=== PATIENT | male | born 1960 ===

== ENCOUNTER 2021-06-04 18:00 | Inpatient (IN) ==
[2021-06-04] MEDS ORDERED: Dexamethasone IV 4 MG/ML 5 ML VIAL (20 MG) IVPB ONE (18:09)
[2021-06-04 18:42] LABS: Hematocrit 42 % (42-52); Hemoglobin 13.2 g/dL (14.0-18.0); Mean Corpuscular HGB Conc 31 g/dL (31-36); Mean Corpuscular Hemoglobin 25 pg (27-31); Mean Corpuscular Volume 81 fL (80-94); Red Blood Count 5.22 10^6 /uL (4.18-5.48); Red Cell Distribution Width 20 % (10-15); White Blood Count 9.3 10^3/uL (3.5-10.8)
[2021-06-04 18:43] LABS: ABS Basophils 0.1 10^3/ul (0-0.2); ABS Lymphocytes 1.1 10^3/ul (1.0-4.8); ABS Monocytes 0.9 10^3/ul (0-0.8); ABS Neutrophils 7.2 10^3/ul (1.5-7.7); Eosinophil % 0.3 %; Lymphocyte % 12.3 %; Nucleated Red Blood Cells % 0.2
[2021-06-04 19:01] LABS: High Sens Troponin Baseline 23 pg/mL (<20)
[2021-06-04 19:14] LABS: ALT 39 U/L (7-52); Albumin 3.9 g/dL (3.2-5.2); Albumin/Globulin Ratio 0.9 (1-3); Alkaline Phosphatase 100 U/L (35-149); Anion Gap 19 mmol/L (2-11); Blood Urea Nitrogen 28 mg/dL (6-24); C Reactive Protein 105.94 mg/L (<8.01); Calcium 8.9 mg/dL (8.6-10.3); Chloride 98 mmol/L (101-111); Globulin 4.4 g/dL (2-4); Glucose 480 mg/dL (70-100); Sodium 131 mmol/L (135-145); Total Protein 8.3 g/dL (6.4-8.9); eGFR CKD-EPI 67.7 (>60)
[2021-06-04 19:16] LABS: PCO2 Arterial 25 mmHg (35-45); PO2 Arterial 80 mmHg (80-100)
[2021-06-04 19:16] LABS: CO2 Carbon Dioxide 14 mmol/L (22-32)
[2021-06-04] MEDS ORDERED: INSULIN GLARGINE (NF) 300 UNIT/ML INJ SUBCUT ONE (20:08)
[2021-06-04] MEDS ORDERED: Lactated Ringers 1000 ml BAG 1,000 ML IV ONE ×2 (20:10→23:39)
[2021-06-04 20:23] LABS: High Sensitivity Troponin 1 Hr 40 pg/mL (<20)
[2021-06-04 20:29] LABS: Mean Platelet Volume 9.1 fL (7.4-10.4); Platelet Count 200 10^3/uL (150-450)
[2021-06-04] MEDS ORDERED: Albuterol/Ipratropium NEB.SOL (2.5/0.5 MG) 3 ML NEB.SOLN INH ONE (20:34)
[2021-06-04] MEDS ORDERED: Iodixanol (CONTRAST) 320 MG/ML 100 ML SDV IV ONE (20:40)
[2021-06-04] MEDS ORDERED: Insulin GLARGINE 100 un/ml 10 ml VIAL SUBCUT ONE (21:15)
[2021-06-04] MEDS ORDERED: Thiamine 100 MG/ML 2 ml VIAL (200 mg) IM ONE (23:43)
[2021-06-04] MEDS ORDERED: LORazepam 2 mg VIAL 1 ml IV PUSH SCH (23:45)
[2021-06-05 00:14] LABS: Urine Appearance Clear; Urine Bilirubin Negative (Negative); Urine Blood 2+ (Negative); Urine Color Yellow; Urine Glucose 3+(>=500 mg/dL) (Negative); Urine Ketones 1+ (Negative); Urine Nitrite Negative (Negative); Urine Protein 2+(100 mg/dL) (Negative); Urine Specific Gravity 1.053 (1.002-1.030); Urine Urobilinogen Negative (Negative)
[2021-06-05 00:15] LABS: Urine Bacteria Absent (Absent); Urine Red Blood Cell Trace(0-2/hpf) (Absent); Urine White Blood Cell Absent (Absent)
[2021-06-05 00:23] LABS: Magnesium 1.8 mg/dL (1.9-2.7); eGFR CKD-EPI 87.2 (>60)
[2021-06-05] MEDS ORDERED: Magnesium Sulfate 2 gm BAG 2 GM/50 ML BAG IVPB ONE (00:50)
[2021-06-05 03:03] LABS: Glucose Confirmatory 417 mg/dL (70-100)
[2021-06-05 05:53] LABS: Calcium 8.7 mg/dL (8.6-10.3); Magnesium 2.2 mg/dL (1.9-2.7); Potassium 4.1 mmol/L (3.5-5.0); eGFR CKD-EPI 97.2 (>60)
[2021-06-05] MEDS ORDERED: Insulin GLARGINE 100 un/ml 10 ml VIAL SUBCUT SCH (09:00)
[2021-06-05] MEDS: Multivitamins/Minerals TAB PO SCH (09:34)
[2021-06-05] MEDS ORDERED: Insulin GLARGINE 100 un/ml 10 ml VIAL SUBCUT ONE (10:34)
[2021-06-05 13:33] LABS: Blood Urea Nitrogen 34 mg/dL (6-24); CO2 Carbon Dioxide 22 mmol/L (22-32); Calcium 8.7 mg/dL (8.6-10.3); Chloride 106 mmol/L (101-111); Glucose 369 mg/dL (70-100); Sodium 140 mmol/L (135-145); eGFR CKD-EPI 99.7 (>60)
[2021-06-05 14:15] LABS: Anion Gap 12 mmol/L (2-11)
[2021-06-05] MEDS ORDERED: Lorazepam PYXIS KEY PRN (20:17)
[2021-06-05] MEDS ORDERED: LORazepam 2 mg VIAL 1 ml IV PUSH PRN (20:17)
[2021-06-06 05:57] LABS: Hematocrit 37 % (42-52); Hemoglobin 11.4 g/dL (14.0-18.0); Mean Corpuscular HGB Conc 31 g/dL (31-36); Mean Corpuscular Hemoglobin 25 pg (27-31); Mean Corpuscular Volume 81 fL (80-94); Mean Platelet Volume 8.5 fL (7.4-10.4); Platelet Count 109 10^3/uL (150-450); Red Blood Count 4.57 10^6 /uL (4.18-5.48); Red Cell Distribution Width 20 % (10-15); White Blood Count 7.7 10^3/uL (3.5-10.8)
[2021-06-06 06:46] LABS: Calcium 6.9 mg/dL (8.6-10.3); Magnesium 1.7 mg/dL (1.9-2.7); Potassium 3.4 mmol/L (3.5-5.0); eGFR CKD-EPI 112.1 (>60)
[2021-06-06] MEDS ORDERED: Furosemide 40 mg/4 ml IV VIAL IV ONE (08:41)
[2021-06-06] MEDS ORDERED: Magnesium Sulfate IV 3 GM in NS 0.9% 100 ml BAG 100 ML IVPB ONE (08:41)
[2021-06-06] MEDS ORDERED: KCL 20 MEQ/100 ML IVPREMIX 20 MEQ/100 ML BAG IV ONE (08:41)
[2021-06-06] MEDS ORDERED: Magnesium Sulfate 2 GM IV (Premix) IVPB ONE (09:00)
[2021-06-06] MEDS: Insulin GLARGINE 100 un/ml 10 ml VIAL SUBCUT SCH (09:30)
[2021-06-06] MEDS: Acetylcysteine 600mgCAP(RENAL) PO SCH ×2 (09:38→21:43)
[2021-06-06] MEDS: Multivitamins/Minerals TAB PO SCH (09:39)
[2021-06-06] MEDS ORDERED: Magnesium Sulfate 1 GM IV 1 GM/100 ML BAG IV ONE (10:00)
[2021-06-06] MEDS ORDERED: Senna TAB 8.6 mg TAB PO PRN (10:32)
[2021-06-06] MEDS ORDERED: Senna TAB 8.6 mg TAB PO ONE (10:34)
[2021-06-06] MEDS: CMC: Selenium 200 mcg TAB (NF) PO SCH (11:11)
[2021-06-06 14:45] LABS: Hematocrit 37 % (42-52); Hemoglobin 11.6 g/dL (14.0-18.0)
[2021-06-06] MEDS: Magnesium Hydroxide LIQ 30 ML UDC PO SCH ×2 (21:42→21:43)
[2021-06-07 07:02] LABS: Calcium 8.4 mg/dL (8.6-10.3); Magnesium 2.1 mg/dL (1.9-2.7); Potassium 4.2 mmol/L (3.5-5.0); eGFR CKD-EPI 102.9 (>60)
[2021-06-07 08:28] LABS: ABS Lymphocytes 0.7 10^3/ul (1.0-4.8); ABS Monocytes 0.4 10^3/ul (0-0.8); Eosinophil % 0.1 %; Hematocrit 37 % (42-52); Hemoglobin 11.7 g/dL (14.0-18.0); Lymphocyte % 10.7 %; Mean Corpuscular HGB Conc 32 g/dL (31-36); Mean Corpuscular Hemoglobin 25 pg (27-31); Mean Corpuscular Volume 79 fL (80-94); Mean Platelet Volume 8.6 fL (7.4-10.4); Nucleated Red Blood Cells % 0.1; Platelet Count 91 10^3/uL (150-450); RBC Morphology Normal (Normal); Red Blood Count 4.63 10^6 /uL (4.18-5.48); Red Cell Distribution Width 19 % (10-15); White Blood Count 6.1 10^3/uL (3.5-10.8)
[2021-06-07] MEDS: Insulin GLARGINE 100 un/ml 10 ml VIAL SUBCUT SCH (08:40)
[2021-06-07] MEDS: Acetylcysteine 600mgCAP(RENAL) PO SCH ×2 (08:40→20:08)
[2021-06-07] MEDS: CMC: Selenium 200 mcg TAB (NF) PO SCH (08:41)
[2021-06-07] MEDS: Multivitamins/Minerals TAB PO SCH (08:41)
[2021-06-07] MEDS: Magnesium Hydroxide LIQ 30 ML UDC PO SCH ×2 (08:41→20:59)
[2021-06-07 20:54] LABS: Hematocrit 38 % (42-52); Hemoglobin 12.1 g/dL (14.0-18.0)
[2021-06-08 05:49] LABS: ABS Basophils 0.1 10^3/ul (0-0.2); ABS Lymphocytes 0.9 10^3/ul (1.0-4.8); ABS Monocytes 0.4 10^3/ul (0-0.8); ABS Neutrophils 4.9 10^3/ul (1.5-7.7); Eosinophil % 0.7 %; Hematocrit 36 % (42-52); Hemoglobin 11.5 g/dL (14.0-18.0); Lymphocyte % 13.7 %; Mean Corpuscular HGB Conc 32 g/dL (31-36); Mean Corpuscular Hemoglobin 25 pg (27-31); Mean Corpuscular Volume 79 fL (80-94); Mean Platelet Volume 8.7 fL (7.4-10.4); Nucleated Red Blood Cells % 0.1; Platelet Count 84 10^3/uL (150-450); Red Blood Count 4.58 10^6 /uL (4.18-5.48); Red Cell Distribution Width 19 % (10-15); White Blood Count 6.3 10^3/uL (3.5-10.8)
[2021-06-08 06:50] LABS: Calcium 8.3 mg/dL (8.6-10.3); Magnesium 1.9 mg/dL (1.9-2.7); Potassium 3.7 mmol/L (3.5-5.0); eGFR CKD-EPI 103.3 (>60)
[2021-06-08 06:57] LABS: Anisocytosis 1+
[2021-06-08] MEDS: Multivitamins/Minerals TAB PO SCH (10:02)
[2021-06-08] MEDS: CMC: Selenium 200 mcg TAB (NF) PO SCH (10:02)
[2021-06-08] MEDS: Acetylcysteine 600mgCAP(RENAL) PO SCH ×2 (10:09→20:52)
[2021-06-08] MEDS: Magnesium Hydroxide LIQ 30 ML UDC PO SCH ×2 (10:10→20:26)
[2021-06-08] MEDS: Insulin GLARGINE 100 un/ml 10 ml VIAL SUBCUT SCH (10:10)
[2021-06-08] MEDS: Nystatin TOP POWDER 15 GM BTL TOPICAL SCH (20:51)
[2021-06-09 05:54] LABS: Hematocrit 38 % (42-52); Mean Corpuscular HGB Conc 32 g/dL (31-36); Mean Corpuscular Hemoglobin 25 pg (27-31); Mean Corpuscular Volume 79 fL (80-94); Mean Platelet Volume 8.9 fL (7.4-10.4); Platelet Count 83 10^3/uL (150-450); Red Blood Count 4.76 10^6 /uL (4.18-5.48); Red Cell Distribution Width 19 % (10-15); White Blood Count 6.1 10^3/uL (3.5-10.8)
[2021-06-09 06:13] LABS: Calcium 8.2 mg/dL (8.6-10.3); Magnesium 1.8 mg/dL (1.9-2.7); Potassium 4.1 mmol/L (3.5-5.0); eGFR CKD-EPI 102.4 (>60)
[2021-06-09 06:48] LABS: Anisocytosis 2+; Microcytosis 1+
[2021-06-09 06:49] LABS: ABS Basophils 0.1 10^3/ul (0-0.2); ABS Eosinophils 0.1 10^3/ul (0-0.6); ABS Lymphocytes 0.9 10^3/ul (1.0-4.8); ABS Monocytes 0.3 10^3/ul (0-0.8); ABS Neutrophils 4.7 10^3/ul (1.5-7.7); Eosinophil % 1.2 %; Lymphocyte % 15.4 %; Nucleated Red Blood Cells % 0.2
[2021-06-09] MEDS ORDERED: Magnesium Hydroxide LIQ 30 ML UDC PO PRN (07:53)
[2021-06-09] MEDS: Insulin GLARGINE 100 un/ml 10 ml VIAL SUBCUT SCH (08:04)
[2021-06-09] MEDS: CMC: Selenium 200 mcg TAB (NF) PO SCH (08:05)
[2021-06-09] MEDS: Multivitamins/Minerals TAB PO SCH (08:05)
[2021-06-09] MEDS: Nystatin TOP POWDER 15 GM BTL TOPICAL SCH ×2 (08:06→21:07)
[2021-06-09] MEDS: Acetylcysteine 600mgCAP(RENAL) PO SCH ×2 (08:06→21:03)
[2021-06-09] MEDS ORDERED: Magnesium Sulfate 2 gm BAG 2 GM/50 ML BAG IVPB ONE (13:21)
[2021-06-09] MEDS: Albuterol HFA INHALER 8 gm MDI INH PRN (23:50)
[2021-06-10] MEDS: Albuterol HFA INHALER 8 gm MDI INH PRN (04:51)
[2021-06-10 06:14] LABS: ABS Eosinophils 0.1 10^3/ul (0-0.6); ABS Lymphocytes 0.8 10^3/ul (1.0-4.8); ABS Monocytes 0.3 10^3/ul (0-0.8); ABS Neutrophils 4.9 10^3/ul (1.5-7.7); Eosinophil % 1.6 %; Hematocrit 38 % (42-52); Hemoglobin 12.1 g/dL (14.0-18.0); Lymphocyte % 13.3 %; Mean Corpuscular HGB Conc 32 g/dL (31-36); Mean Corpuscular Hemoglobin 25 pg (27-31); Mean Corpuscular Volume 79 fL (80-94); Mean Platelet Volume 9.1 fL (7.4-10.4); Nucleated Red Blood Cells % 0.1; Platelet Count 78 10^3/uL (150-450); Red Blood Count 4.76 10^6 /uL (4.18-5.48); Red Cell Distribution Width 18 % (10-15); White Blood Count 6.2 10^3/uL (3.5-10.8)
[2021-06-10 06:53] LABS: Potassium 3.6 mmol/L (3.5-5.0); eGFR CKD-EPI 101.2 (>60)
[2021-06-10 08:24] LABS: Ferritin 119.5 ng/mL (24-336)
[2021-06-10 08:30] LABS: Anisocytosis 1+
[2021-06-10] MEDS ORDERED: Remdesivir 100 mg Vial 200 MG in NS 0.9% 250 ml 210 ML IV ONE (10:00)
[2021-06-10] MEDS ORDERED: Saline NASAL SPRAY 0.65% BTL BOTH NARES PRN (10:03)
[2021-06-10] MEDS: CMC: Selenium 200 mcg TAB (NF) PO SCH (10:08)
[2021-06-10] MEDS: Senna TAB 8.6 mg TAB PO PRN (10:08)
[2021-06-10] MEDS: Insulin GLARGINE 100 un/ml 10 ml VIAL SUBCUT SCH (10:09)
[2021-06-10] MEDS: Acetylcysteine 600mgCAP(RENAL) PO SCH ×2 (10:09→21:17)
[2021-06-10] MEDS: Multivitamins/Minerals TAB PO SCH (10:10)
[2021-06-10] MEDS: Nystatin TOP POWDER 15 GM BTL TOPICAL SCH ×2 (10:12→21:21)
[2021-06-10] MEDS ORDERED: Furosemide 20 mg/2 ml IV VIAL IV SLOW PU ONE (10:17)
[2021-06-10 11:23] LABS: INR 1.45 (0.86-1.15)
[2021-06-10 12:05] LABS: Albumin 3.4 g/dL (3.2-5.2); Calcium 8.3 mg/dL (8.6-10.3); Globulin 3.3 g/dL (2-4); Potassium 3.6 mmol/L (3.5-5.0); Total Bilirubin 1.3 mg/dL (0.2-1.0); Total Protein 6.7 g/dL (6.4-8.9); eGFR CKD-EPI 99.3 (>60)
[2021-06-10 21:29] LABS: HIT ELISA 0.147 OD (<0.400); Heparin PF4 Antibody Interp Negative (Negative)
[2021-06-11 05:02] LABS: ABS Basophils 0.1 10^3/ul (0-0.2); ABS Eosinophils 0.1 10^3/ul (0-0.6); ABS Lymphocytes 0.7 10^3/ul (1.0-4.8); ABS Monocytes 0.3 10^3/ul (0-0.8); ABS Neutrophils 5.2 10^3/ul (1.5-7.7); Hematocrit 36 % (42-52); Hemoglobin 11.6 g/dL (14.0-18.0); Lymphocyte % 11.8 %; Mean Corpuscular HGB Conc 32 g/dL (31-36); Mean Corpuscular Hemoglobin 26 pg (27-31); Mean Corpuscular Volume 80 fL (80-94); Mean Platelet Volume 9.5 fL (7.4-10.4); Platelet Count 93 10^3/uL (150-450); Red Blood Count 4.58 10^6 /uL (4.18-5.48); Red Cell Distribution Width 19 % (10-15); White Blood Count 6.3 10^3/uL (3.5-10.8)
[2021-06-11 05:11] LABS: INR 1.84 (0.86-1.15)
[2021-06-11 05:30] LABS: Albumin 3.2 g/dL (3.2-5.2); Albumin/Globulin Ratio 1.1 (1-3); Calcium 8.3 mg/dL (8.6-10.3); Phosphorus 3.8 mg/dL (2.5-5.0); Potassium 4.5 mmol/L (3.5-5.0); Total Protein 6.2 g/dL (6.4-8.9); eGFR CKD-EPI 104.2 (>60)
[2021-06-11] MEDS ORDERED: Furosemide 20 mg/2 ml IV VIAL IV SLOW PU ONE (07:27)
[2021-06-11] MEDS: Acetylcysteine 600mgCAP(RENAL) PO SCH ×2 (08:19→20:25)
[2021-06-11] MEDS: CMC: Selenium 200 mcg TAB (NF) PO SCH (08:20)
[2021-06-11] MEDS: Multivitamins/Minerals TAB PO SCH (08:21)
[2021-06-11] MEDS: Insulin GLARGINE 100 un/ml 10 ml VIAL SUBCUT SCH (08:24)
[2021-06-11] MEDS: Nystatin TOP POWDER 15 GM BTL TOPICAL SCH ×2 (08:28→22:54)
[2021-06-11] MEDS ORDERED: Albuterol HFA INHALER 8 gm MDI INH PRN (08:37)
[2021-06-11] MEDS ORDERED: Ipratropium HFA INHALER(NF) (ALTERNATIVE = NEBS) INH PRN (08:58)
[2021-06-11] MEDS: Remdesivir 100 mg Vial 100 MG in NS 0.9% 250 ml 230 ML IV SCH (12:43)
[2021-06-11] MEDS: SPIRIVA Respimat (tiotropium) 2.5 mcg/inh Inhaler INH SCH (19:32)
[2021-06-12 05:06] LABS: Hematocrit 38 % (42-52); Hemoglobin 12.1 g/dL (14.0-18.0); Mean Corpuscular HGB Conc 32 g/dL (31-36); Mean Corpuscular Hemoglobin 26 pg (27-31); Mean Corpuscular Volume 80 fL (80-94); Mean Platelet Volume 9.5 fL (7.4-10.4); Platelet Count 128 10^3/uL (150-450); Red Blood Count 4.74 10^6 /uL (4.18-5.48); Red Cell Distribution Width 19 % (10-15); White Blood Count 7.1 10^3/uL (3.5-10.8)
[2021-06-12 05:13] LABS: INR 1.74 (0.86-1.15)
[2021-06-12 05:49] LABS: ABS Basophils 0.1 10^3/ul (0-0.2); ABS Eosinophils 0.1 10^3/ul (0-0.6); ABS Monocytes 0.4 10^3/ul (0-0.8); ABS Neutrophils 5.6 10^3/ul (1.5-7.7); Albumin 3.2 g/dL (3.2-5.2); Calcium 8.4 mg/dL (8.6-10.3); Eosinophil % 1.2 %; Globulin 3.1 g/dL (2-4); Lymphocyte % 13.9 %; Magnesium 1.9 mg/dL (1.9-2.7); Potassium 4.1 mmol/L (3.5-5.0); RBC Morphology Normal (Normal); Total Protein 6.3 g/dL (6.4-8.9); eGFR CKD-EPI 97.9 (>60)
[2021-06-12] MEDS: SPIRIVA Respimat (tiotropium) 2.5 mcg/inh Inhaler INH SCH (07:06)
[2021-06-12] MEDS: Insulin GLARGINE 100 un/ml 10 ml VIAL SUBCUT SCH (08:18)
[2021-06-12] MEDS: Acetylcysteine 600mgCAP(RENAL) PO SCH ×2 (08:19→22:24)
[2021-06-12] MEDS: CMC: Selenium 200 mcg TAB (NF) PO SCH (08:19)
[2021-06-12] MEDS: Multivitamins/Minerals TAB PO SCH (08:20)
[2021-06-12] MEDS: Nystatin TOP POWDER 15 GM BTL TOPICAL SCH ×2 (08:20→21:56)
[2021-06-12] MEDS: Remdesivir 100 mg Vial 100 MG in NS 0.9% 250 ml 230 ML IV SCH (09:21)
[2021-06-12] MEDS: Senna TAB 8.6 mg TAB PO PRN (21:55)
[2021-06-13 06:02] LABS: INR 1.74 (0.86-1.15)
[2021-06-13 06:09] LABS: Albumin 3.2 g/dL (3.2-5.2); Albumin/Globulin Ratio 1.1 (1-3); Calcium 8.4 mg/dL (8.6-10.3); Globulin 2.9 g/dL (2-4); Total Protein 6.1 g/dL (6.4-8.9); eGFR CKD-EPI 97.6 (>60)
[2021-06-13] MEDS: SPIRIVA Respimat (tiotropium) 2.5 mcg/inh Inhaler INH SCH ×2 (09:22→11:32)
[2021-06-13] MEDS: Insulin GLARGINE 100 un/ml 10 ml VIAL SUBCUT SCH (09:50)
[2021-06-13] MEDS: Remdesivir 100 mg Vial 100 MG in NS 0.9% 250 ml 230 ML IV SCH (10:30)
[2021-06-13] MEDS: Acetylcysteine 600mgCAP(RENAL) PO SCH ×2 (10:49→22:02)
[2021-06-13] MEDS: CMC: Selenium 200 mcg TAB (NF) PO SCH (10:49)
[2021-06-13] MEDS: Multivitamins/Minerals TAB PO SCH (10:50)
[2021-06-13] MEDS: Nystatin TOP POWDER 15 GM BTL TOPICAL SCH ×2 (10:53→22:03)
[2021-06-13] MEDS ORDERED: Dextrose 50% Syringe 50 ml 25 GM/50 ML SYRINGE IV PUSH PRN (17:38)
[2021-06-14 06:49] LABS: ABS Basophils 0.1 10^3/ul (0-0.2); ABS Lymphocytes 1.1 10^3/ul (1.0-4.8); ABS Monocytes 0.5 10^3/ul (0-0.8); ABS Neutrophils 5.8 10^3/ul (1.5-7.7); Eosinophil % 0.3 %; Hematocrit 36 % (42-52); Hemoglobin 11.6 g/dL (14.0-18.0); Lymphocyte % 14.3 %; Mean Corpuscular HGB Conc 32 g/dL (31-36); Mean Corpuscular Hemoglobin 25 pg (27-31); Mean Corpuscular Volume 79 fL (80-94); Mean Platelet Volume 8.9 fL (7.4-10.4); Platelet Count 179 10^3/uL (150-450); Red Blood Count 4.56 10^6 /uL (4.18-5.48); Red Cell Distribution Width 19 % (10-15); White Blood Count 7.4 10^3/uL (3.5-10.8)
[2021-06-14 07:01] LABS: INR 1.88 (0.86-1.15)
[2021-06-14 07:18] LABS: Albumin 3.3 g/dL (3.2-5.2); Albumin/Globulin Ratio 1.2 (1-3); Calcium 8.5 mg/dL (8.6-10.3); Globulin 2.7 g/dL (2-4); Total Bilirubin 0.9 mg/dL (0.2-1.0); eGFR CKD-EPI 103.3 (>60)
[2021-06-14] MEDS: SPIRIVA Respimat (tiotropium) 2.5 mcg/inh Inhaler INH SCH (08:12)
[2021-06-14] MEDS: Insulin GLARGINE 100 un/ml 10 ml VIAL SUBCUT SCH (08:52)
[2021-06-14] MEDS: Multivitamins/Minerals TAB PO SCH (08:53)
[2021-06-14] MEDS: Nystatin TOP POWDER 15 GM BTL TOPICAL SCH ×2 (08:53→21:09)
[2021-06-14] MEDS: Acetylcysteine 600mgCAP(RENAL) PO SCH ×2 (08:54→21:09)
[2021-06-14] MEDS: CMC: Selenium 200 mcg TAB (NF) PO SCH (08:54)
[2021-06-14] MEDS: Remdesivir 100 mg Vial 100 MG in NS 0.9% 250 ml 230 ML IV SCH (09:36)
[2021-06-14] MEDS: Senna TAB 8.6 mg TAB PO PRN (21:22)
[2021-06-15 06:45] LABS: ABS Eosinophils 0.1 10^3/ul (0-0.6); ABS Lymphocytes 2.3 10^3/ul (1.0-4.8); ABS Monocytes 0.8 10^3/ul (0-0.8); ABS Neutrophils 4.8 10^3/ul (1.5-7.7); Eosinophil % 1.6 %; Hematocrit 38 % (42-52); Hemoglobin 12.1 g/dL (14.0-18.0); Lymphocyte % 27.9 %; Mean Corpuscular HGB Conc 32 g/dL (31-36); Mean Corpuscular Hemoglobin 26 pg (27-31); Mean Corpuscular Volume 81 fL (80-94); Mean Platelet Volume 8.7 fL (7.4-10.4); Platelet Count 215 10^3/uL (150-450); Red Blood Count 4.67 10^6 /uL (4.18-5.48); Red Cell Distribution Width 19 % (10-15); White Blood Count 8.1 10^3/uL (3.5-10.8)
[2021-06-15 06:48] LABS: INR 1.82 (0.86-1.15)
[2021-06-15 07:17] LABS: Albumin 3.3 g/dL (3.2-5.2); Albumin/Globulin Ratio 1.2 (1-3); Calcium 8.8 mg/dL (8.6-10.3); Globulin 2.7 g/dL (2-4); Potassium 4.7 mmol/L (3.5-5.0); Total Bilirubin 0.8 mg/dL (0.2-1.0); eGFR CKD-EPI 95.3 (>60)
[2021-06-15] MEDS: SPIRIVA Respimat (tiotropium) 2.5 mcg/inh Inhaler INH SCH (08:00)
[2021-06-15] MEDS ORDERED: Insulin GLARGINE 100 un/ml 10 ml VIAL SUBCUT SCH (09:00)
[2021-06-15] MEDS: Acetylcysteine 600mgCAP(RENAL) PO SCH (09:54)
[2021-06-15] MEDS: Multivitamins/Minerals TAB PO SCH (09:54)
[2021-06-15] MEDS: Nystatin TOP POWDER 15 GM BTL TOPICAL SCH ×2 (09:55→20:57)
[2021-06-15] MEDS: CMC: Selenium 200 mcg TAB (NF) PO SCH (09:55)
[2021-06-15 14:08] LABS: ABS Basophils 0.1 10^3/ul (0-0.2); ABS Eosinophils 0.1 10^3/ul (0-0.6); ABS Lymphocytes 1.3 10^3/ul (1.0-4.8); ABS Monocytes 0.6 10^3/ul (0-0.8); ABS Neutrophils 5.6 10^3/ul (1.5-7.7); Eosinophil % 1.5 %; Hematocrit 37 % (42-52); Hemoglobin 11.7 g/dL (14.0-18.0); Mean Corpuscular HGB Conc 32 g/dL (31-36); Mean Corpuscular Hemoglobin 26 pg (27-31); Mean Corpuscular Volume 81 fL (80-94); Platelet Count 199 10^3/uL (150-450); Red Blood Count 4.55 10^6 /uL (4.18-5.48); Red Cell Distribution Width 20 % (10-15); White Blood Count 7.7 10^3/uL (3.5-10.8)
[2021-06-15] MEDS: Senna TAB 8.6 mg TAB PO PRN (20:56)
[2021-06-16 05:01] LABS: Hematocrit 37 % (42-52); Hemoglobin 11.7 g/dL (14.0-18.0); Mean Corpuscular HGB Conc 32 g/dL (31-36); Mean Corpuscular Hemoglobin 26 pg (27-31); Mean Corpuscular Volume 80 fL (80-94); Mean Platelet Volume 8.8 fL (7.4-10.4); Platelet Count 194 10^3/uL (150-450); Red Blood Count 4.54 10^6 /uL (4.18-5.48); Red Cell Distribution Width 19 % (10-15); White Blood Count 7.1 10^3/uL (3.5-10.8)
[2021-06-16 05:22] LABS: ABS Basophils 0.1 10^3/ul (0-0.2); ABS Eosinophils 0.1 10^3/ul (0-0.6); ABS Lymphocytes 1.6 10^3/ul (1.0-4.8); ABS Monocytes 0.6 10^3/ul (0-0.8); ABS Neutrophils 4.6 10^3/ul (1.5-7.7); Eosinophil % 1.5 %; Lymphocyte % 23.6 %
[2021-06-16] MEDS: SPIRIVA Respimat (tiotropium) 2.5 mcg/inh Inhaler INH SCH (08:22)
[2021-06-16] MEDS: Polyethylene Glycol 3350 17 GM PACKET PO SCH (08:23)
[2021-06-16] MEDS: Nystatin TOP POWDER 15 GM BTL TOPICAL SCH ×2 (08:24→21:35)
[2021-06-16] MEDS: Multivitamins/Minerals TAB PO SCH (08:24)
[2021-06-16] MEDS: Insulin GLARGINE 100 un/ml 10 ml VIAL SUBCUT SCH (09:23)
[2021-06-16] MEDS: Psyllium PAK PO SCH (09:26)
[2021-06-17 05:48] LABS: Hematocrit 37 % (42-52); Hemoglobin 11.9 g/dL (14.0-18.0); Mean Corpuscular HGB Conc 32 g/dL (31-36); Mean Corpuscular Hemoglobin 26 pg (27-31); Mean Corpuscular Volume 81 fL (80-94); Mean Platelet Volume 8.8 fL (7.4-10.4); Platelet Count 171 10^3/uL (150-450); Red Blood Count 4.58 10^6 /uL (4.18-5.48); Red Cell Distribution Width 19 % (10-15); White Blood Count 7.3 10^3/uL (3.5-10.8)
[2021-06-17] MEDS: SPIRIVA Respimat (tiotropium) 2.5 mcg/inh Inhaler INH SCH (08:54)
[2021-06-17] MEDS: Polyethylene Glycol 3350 17 GM PACKET PO SCH (08:59)
[2021-06-17] MEDS: Multivitamins/Minerals TAB PO SCH (09:01)
[2021-06-17] MEDS: Insulin GLARGINE 100 un/ml 10 ml VIAL SUBCUT SCH (09:01)
[2021-06-17] MEDS: Psyllium PAK PO SCH (09:31)
[2021-06-17] MEDS: Nystatin TOP POWDER 15 GM BTL TOPICAL SCH ×2 (10:42→21:17)
[2021-06-18 06:25] LABS: Hematocrit 33 % (42-52); Hemoglobin 10.6 g/dL (14.0-18.0); Mean Corpuscular HGB Conc 32 g/dL (31-36); Mean Corpuscular Hemoglobin 26 pg (27-31); Mean Corpuscular Volume 80 fL (80-94); Mean Platelet Volume 8.3 fL (7.4-10.4); Platelet Count 168 10^3/uL (150-450); Red Blood Count 4.12 10^6 /uL (4.18-5.48); Red Cell Distribution Width 19 % (10-15); White Blood Count 7.5 10^3/uL (3.5-10.8)
[2021-06-18] MEDS: SPIRIVA Respimat (tiotropium) 2.5 mcg/inh Inhaler INH SCH (07:52)
[2021-06-18] MEDS: Nystatin TOP POWDER 15 GM BTL TOPICAL SCH (10:09)
[2021-06-18] MEDS: Multivitamins/Minerals TAB PO SCH (10:13)
[2021-06-18] MEDS: Polyethylene Glycol 3350 17 GM PACKET PO SCH (10:13)
[2021-06-18] MEDS: Insulin GLARGINE 100 un/ml 10 ml VIAL SUBCUT SCH (10:14)
[2021-06-18] MEDS: Psyllium PAK PO SCH (10:14)
[2021-06-18 11:24] VITALS: BP 110/57
[2021-06-18] MEDS ORDERED: Sodium Phosphate ADULT ENEMA 133 ML BTL PR ONE (13:30)
[2021-06-18] MEDS ORDERED: fentaNYL 100 mcg/2 ml 50 MCG/ML VIAL ONE (13:32)
[2021-06-18] MEDS ORDERED: Midazolam 10 mg/10 ml VIAL 1 mg/ml 10 ml VIAL (10 mg) ONE (13:32)
== END 2021-06-18 18:00 | disposition home or self-care (01) | DRG 720 ==
LOC: ED 18:00 → SUATTDRO 23:35 → ICU 23:35 → ED 06-05 00:54 → SSU 06-12 18:53
PROVIDERS: ADMIT Internal Medicine; ATTEND Internal Medicine